=== PATIENT | female | born 1960 | race Caucasian/White ===

== ENCOUNTER 2020-08-30 09:55 | Outpatient (REF) | payer OTHER, SELFPAY ==
--- NOTE | 2020-08-30 10:00 | MM_ITS ---
EXAMINATION: MM SCREENING DIGITAL BREAST TOMOSYNTHESIS, BILATERAL CLINICAL INFORMATION: Screening. Asymptomatic. The lifetime risk of breast cancer based on the Tyrer-Cuzick Model is 5%. COMPARISON: Mammography: 08/29/2019, 07/20/2018, outside exam 06/14/2017 (2D synthesized images, [place], [place]). TECHNIQUE: Digital breast tomosynthesis is performed in both the craniocaudal and mediolateral oblique views along with computer-aided detection (CAD). Synthesized 2D images are generated from the tomosynthesis. FINDINGS: There are scattered areas of fibroglandular density (ACR BI-RADS breast composition Category b). Breast tissue composition borders on heterogeneously dense. There is no significant mass or interval architectural abnormality or abnormal calcifications. Pacemaker generator overlies and partly obscures left axilla on MLO view. No significant changes. MM/MM tomosynthesis screening BI IMPRESSION: No mammographic evidence of malignancy. ASSESSMENT: BI-RADS 1: Negative RECOMMENDATION: Routine annual mammography screening. This patient's information was entered into a reminder system with a target due date for their next mammogram.
== END 2020-08-30 09:56 | disposition home or self-care (01) ==
LOC: HO.MAMMO 09:55
PROVIDERS: PCP Internal Medicine; Visit Provider Internal Medicine
DX: Z12.31 Encounter for screening mammogram for malignant neoplasm of breast (principal)
CPT/HCPCS: 77063; 77067